=== PATIENT | female | born 1980 | race African-American/Black ===

== ENCOUNTER 2018-12-04 18:59 | Emergency (ER) | payer OTHER ==
[2018-12-04 19:23] VITALS: BP 105/66; PULSE 100; TEMP 97.9; BMI 20.5
--- NOTE | 2018-12-04 20:05 | PDOC ---
History of Present Illness - General Chief Complaint: Nausea/Vomiting Stated Complaint: VOMITING Time Seen by Provider: 12/04/18 19:47 History Source: Patient - History of Present Illness Initial Comments: 38 yo F no significant medical history p/w n/v since last night. Her and her just came back from a trip to [facility] where they did sightseeing, safari, and relax at resort. They ate both outside and hotel food during the trip. Her had a few epsidoes of watery diarrhea but now resolved. She vomited nbnb x 5 times since last night. They had chicken and rice before boarding the plane back to [facility] and the sx started on the plane. Patient also endorses mosquito bites. They received flu and yellow fever vaccines before going on the trip. Past History - Past Medical History Allergies/Adverse Reactions: Allergies Allergy/AdvReac Type Severity Reaction Status Date / Time No Known Allergies Allergy Verified 12/04/18 19:19 Home Medications: Ambulatory Orders Acetaminophen [Tylenol] 650 mg PO PRN 12/04/18 Ondansetron [Zofran -] 4 mg PO Q4H #12 tablet 12/04/18 Asthma: No Cancer: No Cardiac Disorders: No CVA: No COPD: No CHF: No DVT: No - Surgical History Cholecystectomy: No Gastric Stapling: No GI Surgery: No - Immunization History Immunization Up to Date: Yes - Suicide/Smoking/Psychosocial Hx Smoking History: Never smoked Information on smoking cessation initiated: No Hx Alcohol Use: No Drug/Substance Use Hx: No *Physical Exam - Vital Signs Last Vital Signs Temp Pulse Resp BP Pulse Ox 97.9 F 100 H 20 105/66 100 12/04/18 19:19 12/04/18 19:19 12/04/18 19:19 12/04/18 19:19 12/04/18 19:19 Moderate Sedation - Procedure Monitoring Vital Signs: Procedure Monitoring Vital Signs Temperature 97.9 F 12/04/18 19:19 Pulse Rate 100 H 12/04/18 19:19 Respiratory Rate 20 12/04/18 19:19 Blood Pressure 105/66 12/04/18 19:19 O2 Sat by Pulse Oximetry (%) 100 12/04/18 19:19 ED Treatment Course - LABORATORY CBC & Chemistry Diagram: 12/04/18 20:32 12/04/18 20:32 *DC/Admit/Observation/Transfer Diagnosis at time of Disposition: Nausea & vomiting Qualifiers: Vomiting type: unspecified Vomiting Intractability: non-intractable Qualified Code(s): R11.2 - Nausea with vomiting, unspecified - Discharge Dispostion Disposition: HOME Condition at time of disposition: Stable - Prescriptions Prescriptions: Ondansetron [Zofran -] 4 mg PO Q4H #12 tablet - Referrals Referrals: Vane Polanco MD [Primary Care Provider] - - Patient Instructions Printed Discharge Instructions: DI for Nausea -- Adult, DI for Vomiting -- Adult Additional Instructions: You were seen and evaluated in ER for nausea and vomiting after returning from an international trip. All lab works are within normal limits and your symptom is likely due to what we called "stomach flu" from viral infection, which is quite common when one's traveling out of country. You have received IV fluid and anti-nausea medications in the ER and now you are stable be discharged home. Anti-nausea medication is sent to the pharmacy of your choice Return to the ER if your symptom is worse or have new onset of diarrhea, fever and chills. - Post Discharge Activity Forms/Work/School Notes: Back to Work
[2018-12-04] MEDS ORDERED: SODIUM CHLORIDE 1,000 ML IV STA (20:17)
[2018-12-04] MEDS ORDERED: ONDANSETRON 8 MG TABLET (FP) PO ONE (20:20)
[2018-12-04] MEDS ORDERED: ONDANSETRON 4 MG/2 ML VIAL ONE (20:44)
[2018-12-04 20:48] LABS: BASO % 0.3 % (0-2.0); HEMATOCRIT 33.7 % (32.4-45.2); HEMOGLOBIN 11.9 GM/dL (10.7-15.3); MCH 32.2 pg (25.7-33.7); MCHC 35.2 g/dl (32.0-36.0); MEAN CELL VOLUME 91.4 fl (80-96); MONO % 7.1 % (3.8-10.2); NEUT % 86.6 % (42.8-82.8); PLATELET COUNT 292 K/MM3 (134-434); RBC 3.69 M/mm3 (3.60-5.2); RDW 13.4 % (11.6-15.6); WHITE BLOOD COUNT 8.6 K/mm3 (4.0-10.0)
[2018-12-04 20:50] LABS: URINE APPEARANCE SLCLOUDY; URINE BILIRUBIN NEGATIVE (<2.0 mg/dL); URINE COLOR DKYELLOW; URINE GLUCOSE (UA) NEGATIVE (NEGATIVE); URINE KETONE 2+ (NEGATIVE); URINE LEUK ESTERASE NEGATIVE (NEGATIVE); URINE NITRITE NEGATIVE (NEGATIVE); URINE PROTEIN 2+ (NEGATIVE)
[2018-12-04 20:56] LABS: EPI CELLS MODERATE /HPF (FEW); URINE BACTERIA RARE /hpf (NONE SEEN); URINE MUCUS MANY
[2018-12-04 21:10] LABS: ALBUMIN 3.9 g/dl (3.4-5.0); ALK PHOS 68 U/L (45-117); ANION GAP 8 MMOL/L (8-16); BLOOD UREA NITROGEN 10 mg/dL (7-18); CALCIUM 8.5 mg/dL (8.5-10.1); CHLORIDE 106 mmol/L (98-107); CO2 24 mmol/L (21-32); CREATININE 0.8 mg/dL (0.55-1.3); GLUCOSE,RANDOM 101 mg/dL (74-106); MAGNESIUM 1.8 mg/dL (1.8-2.4); PHOSPHOROUS 2.8 mg/dL (2.5-4.9); POTASSIUM 3.6 mmol/L (3.5-5.1); SGOT/AST 20 U/L (15-37); SGPT/ALT 16 U/L (13-61); SODIUM 139 mmol/L (136-145); TOT PROT 7.9 g/dl (6.4-8.2)
--- NOTE | 2018-12-04 21:58 | PDOC ---
Attending Attestation - Physicial Exam PE: 12/04/18 21:58 GENERAL: Well developed, well nourished. Awake and alert. No acute distress. CARDIOVASCULAR: Tachycardic. No murmurs, rubs, or gallops. PULMONARY: No evidence of respiratory distress. Lungs clear to auscultation bilaterally. ABDOMINAL: Soft. Non-tender. Non-distended. No rebound or guarding. EXTREMITIES: No cyanosis. No clubbing. No edema. No calf tenderness. SKIN: Warm and dry. Normal capillary refill. No rashes. No jaundice. NEUROLOGICAL: Alert, awake, appropriate. Cranial nerves 2-12 intact. - Medical Decision Making 12/04/18 21:59 Documentation prepared by Zahra Fine, acting as medical insurance coder for Sydnee Carlson MD. <Zahra Fine - Last Filed: 12/04/18 21:58> - Resident Resident Name: MotaGabriele - ED Attending Attestation I have performed the following: I have examined & evaluated the patient, The case was reviewed & discussed with the resident, I agree w/resident's findings & plan, Exceptions are as noted - HPI HPI: 12/04/18 21:56 38-year-old female presents because she's had nausea and vomiting and complained of some epigastric pain No fever, no diarrhea. Patient just came back from [place] .Her had some diarrhea and mild GI upset while in [place]. - Medical Decision Making 12/04/18 23:26 pt had benign abdominal exam, no fever labs reviewed and unremarkable pt received IVF and antiemetic meds and symptoms resolved <Sydnee Carlson - Last Filed: 12/04/18 23:27>
--- NOTE | 2018-12-05 22:49 | EKG ---
Test Reason : Blood Pressure : / mmHG Vent. Rate : 076 BPM Atrial Rate : 076 BPM P-R Int : 200 ms QRS Dur : 070 ms QT Int : 418 ms P-R-T Axes : 084 087 082 degrees QTc Int : 470 ms NORMAL SINUS RHYTHM WITH SINUS ARRHYTHMIA POSSIBLE LEFT ATRIAL ENLARGEMENT BORDERLINE ECG NO PREVIOUS ECGS AVAILABLE Confirmed by ERYN DIAZ MD ([id number]) on 12/05/2018 10:49:00 PM Referred By: Confirmed By:ERYN DIAZ MD
== END 2018-12-04 22:03 | disposition home or self-care (01) ==
LOC: SUPCPDRO 18:59 → JER 18:59
PROC: 3E0337Z Introduction of Electrolytic and Water Balance Substance into Peripheral Vein, Percutaneous Approach (ICD-10-PCS; principal; 2018-12-04)
DX: R11.2 Nausea with vomiting, unspecified (principal)
CPT/HCPCS: 36415; 80053; 81003; 81015; 83690; 83735; 84100; 84703; 85025; 87077; 87086; 93005; 93010; 99282-25; J7030